=== PATIENT | female | born 2000 | race Caucasian/White ===

== ENCOUNTER 2024-08-26 09:30 | Emergency (ER) | payer SELFPAY ==
[2024-08-26 09:32] VITALS: BP 114/83
--- NOTE | 2024-08-26 10:55 | ED.GENMED ---
History of Present Illness
General
Chief Complaint: Throat Problem
Source: patient
Time Seen by Provider: 08/26/24 10:34
History of Present Illness
History of Present Illness:
23-year-old female presenting to the emergency department for evaluation after she has been taking some clindamycin for pharyngitis that was diagnosed about a week ago at urgent care stating this morning she took her medication and felt as if the
tablet is stuck in her throat. She notes no difficulty breathing or swallowing. She notes that there is no pain associated just a foreign body sensation. Denies any history of similar. No history of dysphagia or odynophagia. No nausea or
vomiting. No other concerns presently. Of note, the visiting the area from [facility] where she lives and will be going back home later today.
Past History
Past History
ED Past Medical History: None
ED Past Surgical History: None
Social History
Tobacco: Non-smoker
Alcohol: Occasional
Drug: None
Personal: Single
Living: with family
Review of Systems
Review of Systems
All Other Systems: ROS reviewed and negative except as documented in HPI and ROS
Phy Exam
Physical Exam
Physical Exam:
GENERAL: Alert , in no apparent distress
EYE: conjunctiva clear
Head: Normocephalic atraumatic
NECK: Supple, no foreign body visualized,
ENT: mmm. No tonsillar edema or exudates, uvula midline, airway patent, no stridor, no trismus
LUNGS: no acute respiratory distress
NEUROLOGICAL: Alert and oriented
SKIN: Warm and dry, skin intact.
MUSCULOSKELETAL: well perfused.
PSYCH: Normal and appropriate interaction.
Scores
Heart Failure Risk
Heart Failure Risk Score: Not Applicable
Heart Score for Chest Pain Patients
STEMI patient?: Not applicable
Withdrawal Assessment of Alcohol
Withdrawal Assessment Completed?: Not applicable
Course
Orders/Labs/Results
Orders:
Orders
08/26/24 10:50
Viscous Lidocaine 2% [Xylocaine Viscous Cup] 15 ml PO NOW STA
Vital Signs
Initial and Last Documented VS:
Initial Vital Signs
Temp Pulse Resp BP Pulse Ox
98.4 F 73 18 114/83 100
08/26/24 09:32 08/26/24 09:32 08/26/24 09:32 08/26/24 09:32 08/26/24 09:32
Last Documented Vital Signs
Temp Pulse Resp BP Pulse Ox
98.4 F 73 18 114/83 100
08/26/24 09:32 08/26/24 09:32 08/26/24 09:32 08/26/24 09:32 08/26/24 09:32
MDM/Problems Addressed
Differential Diagnosis Includes:
Pill esophagitis, currently no symptoms to suggest peritonsillar abscess or retropharyngeal abscess, mono, stuck foreign body
MDM/Problems Addressed:
23-year-old female presenting to the emergency department for evaluation of foreign body sensation after taking her clindamycin tablet earlier this morning. No acute respiratory distress, tolerating secretions, no foreign body visualized on exam.
At this time patient is not exhibiting any signs to suggest an acute infectious etiology. I suspect either stuck foreign body or pill esophagitis is the most likely diagnosis. Will symptomatically treat with viscous lidocaine. Patient returning
back home to [place] today. Encourage patient to follow-up with GI if symptoms persist for another few days or week. Counseled to discontinue the clindamycin at this time. Patient is otherwise stable for discharge home.
*Pulse Oximetry
Patient hypoxic: no
*Critical Care Note
Total Time (30-74mins, 75-104mins- exclusive of procedures): Not Applicable
ED Attending Note
-
Portions of this chart may have been created with voice recognition software.� Occasional wrong word or��sound alike� substitutions may have occurred due to the inherent limitations of voice recognition software.
Discharge Plan
Departure
Patient Disposition: Home (Routine Discharge)
Date of Disposition: 08/26/24
Time of Disposition: 10:55
Patient with high blood pressure during this ER visit?: No
Discharge Problem:
Foreign body sensation in throat
Instructions: Swallowed Objects, Adult (DC)
Prescriptions:
New
lidocaine HCl [Lidocaine Viscous] 2 % solution
15 ml mucous membrane Q8H PRN (Reason: sore throat) Qty: 150 0RF
Referrals:
UNKNOWN - PT DOES,NOT KNOW [Family Provider] -
Interventions
Interventions:
*Risk Screen - Suicide Last Done: 08/26/24 09:32
*General Assessment Last Done: 08/26/24 09:32
*Neglect/Abuse Screening Last Done: 08/26/24 09:32
ED- Fall Risk Assessment Last Done: 08/26/24 11:11
*ED COVID-19 Vaccine History Last Done: 08/26/24 11:11
*Nursing Disposition Last Done: 08/26/24 11:11
ED-EENT Assessment Last Done: 08/26/24 11:11
ED- Pulmonary Assessment Last Done: 08/26/24 11:11
Discharge Date and Time
Discharge Date/Time: 08/26/24 11:12
Print Language: AZERI
[2024-08-26] MEDS: XYLOCAINE VISCOUS CUP 15 ML PO (11:07)
== END 2024-08-26 11:12 | disposition home or self-care (01) ==
LOC: EMR 09:30
PROVIDERS: EMERGENCY PHYSICIAN Emergency Medicine
DX: R09.A2 Foreign body sensation, throat (principal); J02.9 Acute pharyngitis, unspecified; Z88.1 Allergy status to other antibiotic agents
CPT/HCPCS: 99283